=== PATIENT | male | born 1990 | race Caucasian/White ===

== ENCOUNTER 2017-05-05 01:25 | Inpatient (IN) | payer SELFPAY ==
--- NOTE | 2017-05-05 01:30 | EDPHY ---
H & P HPI/ROS: HPI CHIEF COMPLAINT: Nausea, vomiting, diarrhea, black tarry stool, coffee ground emesis HISTORY OF PRESENT ILLNESS: This patient is a 27-year-old male he denies any significant medical history does not take any daily medications, he presents emergency room with 48 hours of ongoing nausea vomiting. States this all started approximately 2 days ago with relentless vomiting. He tells me that he has vomited every 30 minutes pretty much continuously. Initially it was normal vomiting of secretions in food, however this continued to have vomiting with what he describes is coffee-ground emesis, also black tarry stool. Denies ever having bright streaks of blood or bright blood. Became concerned with the ongoing vomiting they decided come to the emergency room. Additionally complains of epigastric discomfort that radiates into his chest worse after vomiting. Denies fever. Denies abdominal pain. Specifically denies lower abdominal pain. Denies back pain. Denies chest pain other than the burning sensation. Never had anything like this before. No history of GI bleed or ulcer. Does not take any NSAIDs. Past Medical History: No medical history Past Surgical History: No surgical history Social History: Smokes tobacco and marijuana daily, occasional alcohol, last drink 5 days ago, states he lives in [place]. Family History: Noncontributory ROS REVIEW OF SYSTEMS: A comprehensive 10 point review of systems is otherwise negative aside from elements mentioned in the history of present illness. Exam Constitutional appears nontoxic triage nursing summary reviewed, vital signs reviewed, awake/alert. Initial vital signs noted to be tachycardic. Eyes normal conjunctivae and sclera, EOMI, PERRLA. HENT normal inspection, atraumatic, moist mucus membranes, no epistaxis, neck supple/ no meningismus, no raccoon eyes. Respiratory clear to auscultation bilaterally, normal breath sounds, no respiratory distress, no wheezing. Cardiovascular tachycardic , regular rhythm, no murmur, no edema, distal pulses normal. Gastrointestinal soft, non-tender, no rebound, no guarding, normal bowel sounds, no distension, no pulsatile mass. Genitourinary no CVA tenderness. Musculoskeletal no midline vertebral tenderness, full range of motion, no calf swelling, no tenderness of extremities, no meningismus, good pulses, neurovascularly intact. Skin pink, warm, & dry, no rash, skin atraumatic. Neurologic awake, alert and oriented x 3, AAOx3, moves all 4 extremities equally, motor intact, sensory intact, CN II-XII intact, normal cerebellar, normal vision, normal speech. Psychiatric normal mood/affect. Heme/Lymph/Immune no lymphadenopathy. Differential Diagnosis: Includes but is not limited to in a particular order, gastritis, bowel obstruction, Alma Delia-Ayers tear, Boerhaave syndrome, GI bleed, upper GI bleed, peptic ulcer disease Medical Decision Making: Plan for this patient IV establishment, type and screen, IV Protonix, check abdominal blood work, chest x-ray two view, EKG, troponin, KUB IV fluids and nausea medicine. 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 Re-evaluation: EKG interpretation by me on record in [employer] system. Impression time of EKG 1:45 a.m., sinus rhythm rate of 81 I do not appreciate any significant ST elevation or significant ST depression. QT interval noted to be 448. Otherwise unremarkable EKG. ED x-ray chest two view: Negative for acute cardiopulmonary disease. Specifically I do not appreciate any free air under the diaphragms or subcutaneous air. Lung kennedy clear. Image interpreted myself. ED x-ray KUB: Negative for acute abnormality. Normal bowel gas pattern. No signs of obstruction or free air. Image interpreted by myself Ultrasound of the right upper quadrant. The results of the study are normal gallbladder, very enlarged liver, otherwise unremarkable. I discussed the results of this study with the radiologist Dr. John [id number]: After further discussion with this patient does admit to drinking sometimes large amounts of alcohol. Denies cocaine use but drug screen is positive. Patient still feels nauseous and pain in his epigastric region his lipase is normal. Ultrasound has been reviewed. Blood work reviewed. Elevated liver enzymes and bilirubin. Most likely consistent with liver disease possibly from alcohol use. No ascites on exam. Patient is not jaundiced or icteric. Patient does not appear septic. Given 48 hours of ongoing nausea vomiting and complain of black tarry stools and coffee-ground emesis however his H&H are stable and hemoccult blood is negative will keep him in the hospital today for IV hydration nausea control. Further liver evaluation. I spoke with Dr. Grider who agrees to admit. Source: Patient - Medical/Surgical History Hx Asthma: No Hx Chronic Respiratory Disease: No Hx Diabetes: No Hx Cardiac Disease: No Hx Renal Disease: No Hx Cirrhosis: No Hx Alcoholism: No Hx HIV/AIDS: No Hx Splenectomy or Spleen Trauma: No Other PMH: none - Social History Smoking Status: Current every day smoker Constitutional: Initial Vital Signs Temperature (C) 36.7 C 05/05/17 01:29 Heart Rate 118 H 05/05/17 01:29 Respiratory Rate 20 05/05/17 01:29 Blood Pressure 133/95 H 05/05/17 01:29 O2 Sat (%) 100 05/05/17 01:29 O2 Delivery Mode Room Air Allergies/Adverse Reactions: No Known Allergies Allergy (Unverified 05/05/17 01:28) Home Medications: Medication Instructions Recorded Omeprazole Magnesium [Prilosec Otc] 20 mg PO DAILY #30 tablet. 05/06/17 Medical Decision Making - Data Points Laboratory Results: Laboratory Results 05/05/17 01:40 05/05/17 01:40 Medications Given: Discontinued Medications Chlordiazepoxide HCl (Librium) 50 mg PO ONCE ONE Stop: 05/05/17 06:35 Last Admin: 05/05/17 06:44 Dose: 50 mg Chlordiazepoxide HCl (Librium) 50 mg PO ONCE ONE Stop: 05/05/17 10:19 Last Admin: 05/05/17 11:18 Dose: 50 mg Sodium Chloride (Ns) 1,000 mls @ 0 mls/hr IV EDNOW ONE; Wide Open PRN Reason: Protocol Stop: 05/05/17 01:35 Last Admin: 05/05/17 01:40 Dose: 1,000 mls Pantoprazole Sodium 40 mg/ (Sodium Chloride) 100 mls @ 200 mls/hr IV EDNOW ONE Stop: 05/05/17 02:10 Last Admin: 05/05/17 01:52 Dose: 100 mls Sodium Chloride (Ns) 1,000 mls @ 0 mls/hr IV ONCE ONE PRN Reason: Wide Open Stop: 05/05/17 02:09 Last Admin: 05/05/17 02:35 Dose: 1,000 mls Potassium Chloride 20 meq/ (Sodium Chloride) 1,000 mls @ 125 mls/hr IV CONT JOSUE Stop: 11/01/17 05:29 Last Admin: 05/06/17 08:19 Dose: 1,000 mls Pantoprazole Sodium 40 mg/ (Sodium Chloride) 100 mls @ 200 mls/hr IV BID JOSUE Stop: 11/01/17 08:59 Last Admin: 05/06/17 09:03 Dose: 100 mls Nicotine (Nicoderm Cq) 21 mg TD DAILY PRN PRN Reason: nicotine craving Stop: 11/01/17 08:59 Last Admin: 05/05/17 11:55 Dose: 21 mg Ondansetron HCl (Zofran) 4 mg IVP EDNOW ONE Stop: 05/05/17 01:35 Last Admin: 05/05/17 01:41 Dose: 4 mg Promethazine HCl (Phenergan) 12.5 mg IVP ONCE ONE Stop: 05/05/17 03:05 Last Admin: 05/05/17 03:09 Dose: 12.5 mg Departure - Departure Disposition: [facility] Acute Clinical Impression: Elevated liver enzymes, Dehydration Nausea and vomiting Qualifiers: Vomiting type: unspecified Vomiting Intractability: intractable Qualified Code( s): R11.2 - Nausea with vomiting, unspecified Condition: Good
[2017-05-05] MEDS ORDERED: ONDANSETRON 4 MG/2 ML VIAL IVP ONE (01:34)
[2017-05-05] MEDS ORDERED: NS 1,000 ML IV ONE ×2 (01:34→02:08)
[2017-05-05] MEDS ORDERED: ONDANSETRON 4 MG/2 ML VIAL ONE (01:36)
[2017-05-05] MEDS ORDERED: PANTOPRAZOLE SODIUM 40 MG in NS 100 ML IV ONE (01:41)
--- NOTE | 2017-05-05 01:47 | CPEKG ---
Heart Rate: 81 RR Interval: 741 P-R Interval: 136 QRSD Interval: 92 QT Interval: 448 QTC Interval: 520 P [place]: 70 QRS [place]: 92 T Wave [place]: 57 EKG Severity - ABNORMAL ECG - EKG Impression: SINUS RHYTHM EKG Impression: BORDERLINE RIGHT AXIS DEVIATION EKG Impression: PROLONGED QT INTERVAL Electronically Signed By: Todd Martin 07-May-2017 14:29:35
[2017-05-05 01:53] LABS: % IMMATURE GRANULYOCYTES 0.2 % (0.0-1.1); ABSOLUTE IMMATURE GRANULOCYTES 0.02 10^3/uL (0.00-0.10); ADD DIFF? NO; ADD MORPH? NO; ADD SCAN? NO; ATYPICAL LYMPHOCYTE FLAG 0 (0-99); FRAGMENT RBC FLAG 0 (0-99); HEMATOCRIT 48.4 % (40.0-51.0); HEMOGLOBIN 17.9 g/dL (13.7-17.5); LEFT SHIFT FLG 0 (0-99); LIPEMIA HEMOLYSIS FLAG 90 (0-99); MEAN CELL HEMOGLOBIN 34.1 pg (27.9-34.1); MEAN CELL VOLUME 92.2 fL (81.5-99.8); MEAN PLATELET VOLUME 10.7 fL (8.7-11.7); PLATELET CLUMPS FLAG 0 (0-99); PLATELET COUNT 198 10^3/uL (150-400); RED BLOOD CELL COUNT 5.25 10^6/uL (4.40-6.38); RED CELL DISTRIBUTION WIDTH 12.3 % (11.5-15.2)
[2017-05-05 02:04] LABS: ALANINE AMINOTRANSFERASE 155 IU/L (21-72); ALBUMIN 5.9 g/dL (3.5-5.0); ALKALINE PHOSPHATASE 125 IU/L (38-126); ANION GAP 36 mEq/L (8-16); ASPARTATE AMINOTRANSFERASE 213 IU/L (17-59); BILIRUBIN,TOTAL 2.3 mg/dL (0.1-1.4); BILIRUBIN-CONJUGATED 0.9 mg/dL (0.0-0.5); BILIRUBIN-UNCONJUGATED 1.4 mg/dL (0.0-1.1); CALCIUM 11.1 mg/dL (8.5-10.4); CARBON DIOXIDE 19 mEq/l (22-31); CHLORIDE 86 mEq/L (97-110); CREATININE 1.3 mg/dL (0.7-1.3); ETHANOL SERUM < 10 mg/dL (0-10); GLOMERULAR FILTRATION RATE > 60; GLUCOSE 179 mg/dL (70-100); INR 0.91 (0.83-1.16); POTASSIUM 3.4 mEq/L (3.5-5.2); PROTIME(PATIENT) 12.1 SEC (12.0-15.0); SODIUM 141 mEq/L (134-144); TOTAL PROTEIN 10.2 g/dL (6.3-8.2)
[2017-05-05 02:05] LABS: APTT 25.8 SEC (23.0-38.0)
[2017-05-05 02:40] LABS: COLOR AMBER; LEUKOCYTE ESTERASE,URINE 1+ (NEGATIVE); NITRITE,URINE NEGATIVE (NEGATIVE)
[2017-05-05 03:03] LABS: BACTERIA 1+ /hpf (NONE SEEN); MUCUS 1+ /lpf (NONE-1+); WBC,URINE 25-50 /hpf (0-3)
[2017-05-05] MEDS ORDERED: PROMETHAZINE HCL 25 MG/ML INJ IVP ONE (03:04)
[2017-05-05 03:05] LABS: HYALINE CASTS >182 /lpf (0-1)
[2017-05-05] MEDS: POTASSIUM Cl (KCl) 20 MEQ in 1/2 NS 1,000 ML IV SCH (05:48)
[2017-05-05 06:12] LABS: SALICYLATE < 1.0 mg/dL (2.0-20.0)
--- NOTE | 2017-05-05 06:20 | PDGENHP ---
History and Physical - Chief Complaint nausea and vomiting - History of Present Illness this is a 27-year-old male with history of alcohol abuse who presents to the emergency department with 2 days of vomiting. Since the onset of his vomiting 2 days ago he has not been able to tolerate fluids or solids. He denies any abdominal pain. Denies any sick contacts. He does report some burning and pain in the middle of his chest. He history day he had what he described as some coffee-ground and bloody emesis as well as some black stools. He reports being a heavy drinker. His last drink was prior to the onset of his vomiting where he drank 350 mL of vodka which she does on a fairly regular basis. denies any history of alcohol withdrawal. He denies any aspirin or Tylenol use. History Information - Allergies/Home Medication List Allergies/Adverse Reactions: No Known Allergies Allergy (Unverified 05/05/17 01:28) Home Medications: NK [No Known Home Meds] 01/29/16 [Last Taken Unknown] I have personally reviewed and updated: family history, medical history, social history, surgical history - Surgical History Additional surgical history: Hand surgery - Family History Additional family history: rheumatoid arthritis in his mother - Social History Smoking Status: Current every day smoker Alcohol Use: Heavy Drug Use: Cocaine Review of Systems ROS: 10pt was reviewed & negative except for what was stated in HPI & below Physical Exam Temp Pulse Resp BP Pulse Ox 36.8 C 78 18 128/84 H 97 05/05/17 04:41 05/05/17 04:41 05/05/17 04:41 05/05/17 04:41 05/05/17 04:41 Constitutional: no apparent distress, appears nourished, not in pain Eyes: PERRL, anicteric sclera, EOMI Ears, Nose, Mouth, Throat: moist mucous membranes, hearing normal, ears appear normal, no oral mucosal ulcers Cardiovascular: regular rate and rhythym, No JVD, No tachycardia, No bradycardia Respiratory: no respiratory distress, no rales or rhonchi, clear to auscultation Gastrointestinal: normoactive bowel sounds, soft, non-tender abdomen, no palpable masses, No hepatosplenomegally, No guarding, No rebound Genitourinary: no bladder fullness, no bladder tenderness Skin: warm, normal color, no rashes or abrasions, no fluctuance, no induration, No mottled Neurologic: AAOx3, CN II-XII Intact, No facial droop Psychiatric: interacting appropriately, not anxious, not encephalopathic, thought process linear Lab Data & Imaging Review 05/05/17 01:40 05/05/17 01:40 WBC 10.02 10^3/uL (3.80-9.50) H 05/05/17 01:40 RBC 5.25 10^6/uL (4.40-6.38) 05/05/17 01:40 Hgb 17.9 g/dL (13.7-17.5) H 05/05/17 01:40 Hct 48.4 % (40.0-51.0) 05/05/17 01:40 MCV 92.2 fL (81.5-99.8) 05/05/17 01:40 MCH 34.1 pg (27.9-34.1) 05/05/17 01:40 MCHC 37.0 g/dL (32.4-36.7) H 05/05/17 01:40 RDW 12.3 % (11.5-15.2) 05/05/17 01:40 Plt Count 198 10^3/uL (150-400) 05/05/17 01:40 MPV 10.7 fL (8.7-11.7) 05/05/17 01:40 Neut % (Auto) 81.3 % (39.3-74.2) H 05/05/17 01:40 Lymph % (Auto) 5.6 % (15.0-45.0) L 05/05/17 01:40 Gordon % (Auto) 12.8 % (4.5-13.0) 05/05/17 01:40 Eos % (Auto) 0.0 % (0.6-7.6) L 05/05/17 01:40 Baso % (Auto) 0.1 % (0.3-1.7) L 05/05/17 01:40 Nucleat RBC Rel Count 0.0 % (0.0-0.2) 05/05/17 01:40 Absolute Neuts (auto) 8.15 10^3/uL (1.70-6.50) H 05/05/17 01:40 Absolute Lymphs (auto) 0.56 10^3/uL (1.00-3.00) L 05/05/17 01:40 Absolute Monos (auto) 1.28 10^3/uL (0.30-0.80) H 05/05/17 01:40 Absolute Eos (auto) 0.00 10^3/uL (0.03-0.40) L 05/05/17 01:40 Absolute Basos (auto) 0.01 10^3/uL (0.02-0.10) L 05/05/17 01:40 Absolute Nucleated RBC 0.00 10^3/uL (0-0.01) 05/05/17 01:40 Immature Gran % 0.2 % (0.0-1.1) 05/05/17 01:40 Immature Gran # 0.02 10^3/uL (0.00-0.10) 05/05/17 01:40 PT 12.1 SEC (12.0-15.0) 05/05/17 01:40 INR 0.91 (0.83-1.16) 05/05/17 01:40 APTT 25.8 SEC (23.0-38.0) 05/05/17 01:40 Sodium 141 mEq/L (134-144) 05/05/17 01:40 Potassium 3.4 mEq/L (3.5-5.2) L 05/05/17 01:40 Chloride 86 mEq/L (97-110) L 05/05/17 01:40 Carbon Dioxide 19 mEq/l (22-31) L 05/05/17 01:40 Anion Gap 36 mEq/L (8-16) H 05/05/17 01:40 BUN 18 mg/dL (7-23) 05/05/17 01:40 Creatinine 1.3 mg/dL (0.7-1.3) 05/05/17 01:40 Estimated GFR > 60 05/05/17 01:40 Glucose 179 mg/dL (70-100) H 05/05/17 01:40 Calcium 11.1 mg/dL (8.5-10.4) H 05/05/17 01:40 Phosphorus 3.5 mg/dL (2.5-4.5) 05/05/17 01:40 Total Bilirubin 2.3 mg/dL (0.1-1.4) H 05/05/17 01:40 Conjugated Bilirubin 0.9 mg/dL (0.0-0.5) H 05/05/17 01:40 Unconjugated Bilirubin 1.4 mg/dL (0.0-1.1) H 05/05/17 01:40 AST 213 IU/L (17-59) H 05/05/17 01:40 ALT 155 IU/L (21-72) H 05/05/17 01:40 Alkaline Phosphatase 125 IU/L (38-126) 05/05/17 01:40 Total Protein 10.2 g/dL (6.3-8.2) H 05/05/17 01:40 Albumin 5.9 g/dL (3.5-5.0) H 05/05/17 01:40 Lipase 127.0 IU/L (23-300) 05/05/17 01:40 Urine Color [place] 05/05/17 02:15 Urine Appearance MODERATELY TURBID 05/05/17 02:15 Urine pH 6.0 (5.0-7.5) 05/05/17 02:15 Ur Specific [place] 1.026 (1.002-1.030) 05/05/17 02:15 Urine Protein 3+ (NEGATIVE) H 05/05/17 02:15 Urine Ketones 2+ (NEGATIVE) H 05/05/17 02:15 Urine Blood NEGATIVE (NEGATIVE) 05/05/17 02:15 Urine Nitrate NEGATIVE (NEGATIVE) 05/05/17 02:15 Urine Bilirubin POSITIVE (NEGATIVE) H 05/05/17 02:15 Urine Urobilinogen 4.0 EU (0.2-1.0) H 05/05/17 02:15 Ur Leukocyte Esterase 1+ (NEGATIVE) H 05/05/17 02:15 Urine RBC 3-5 /hpf (0-3) H 05/05/17 02:15 Urine WBC 25-50 /hpf (0-3) H 05/05/17 02:15 Ur Epithelial Cells TRACE /lpf (NONE-1+) 05/05/17 02:15 Urine Bacteria 1+ /hpf (NONE SEEN) H 05/05/17 02:15 Hyaline Casts >182 /lpf (0-1) H 05/05/17 02:15 Urine Mucus 1+ /lpf (NONE-1+) 05/05/17 02:15 Urine Glucose 1+ (NEGATIVE) H 05/05/17 02:15 Stool Occult Bld Scrn NEGATIVE (NEGATIVE) 05/05/17 02:15 Salicylates < 1.0 mg/dL (2.0-20.0) L 05/05/17 05:43 Urine Opiates Screen NEGATIVE (NEGATIVE) 05/05/17 02:15 Acetaminophen < 10 mcg/mL (10.0-30.0) L 05/05/17 05:43 Urine Barbiturates NEGATIVE (NEGATIVE) 05/05/17 02:15 Ur Phencyclidine Scrn NEGATIVE (NEGATIVE) 05/05/17 02:15 Ur Amphetamine Screen NEGATIVE (NEGATIVE) 05/05/17 02:15 U Benzodiazepines Scrn NEGATIVE (NEGATIVE) 05/05/17 02:15 Urine Cocaine Screen NON-NEGATIVE (NEGATIVE) H 05/05/17 02:15 U Marijuana (THC) Screen NON-NEGATIVE (NEGATIVE) H 05/05/17 02:15 Ethyl Alcohol < 10 mg/dL (0-10) 05/05/17 01:40 Patient ABO/Rh O POSITIVE 05/05/17 01:40 Antibody Screen NEGATIVE 05/05/17 01:40 Visualized and Interpreted Chest x-ray results: Yes Chest X-Ray results: no infiltrate, normal, normal heart size Visualized and Interpreted EKG results: Yes EKG Interpretation: Positive for: normal sinsus rhythm ( 81 beats per minute), other ( QTC 448 with a QTCB 520). Negative for: ST elevation, ST depression Assessment & Plan Assessment: This is a 27-year-old male with history of alcohol abuse presenting with: # Intractable nausea vomiting and reported melena suspect gastritis # transaminitis and hyperbilirubinemia most likely due to alcoholic hepatitis # borderline QT prolongation on EKG #hypercalcemia likely due to hypovolemia # mild hypokalemia # tobacco abuse # polycythemia likely due to hypovolemia and dehydration # anion gap metabolic acidosis # alcohol abuse plan: - Admit to the medical surgical unit - IV hydration - continue to monitor electrolytes - IV Protonix - CIWA protocol - Nicoderm patch - considered GI consultation for endoscopy if his symptoms are not improving or if he has any signs of bleeding
[2017-05-05] MEDS ORDERED: PROMETHAZINE HCL 25 MG/ML INJ IVP PRN (06:33)
[2017-05-05] MEDS ORDERED: chlordiazePOXIDE 25 MG CAP PO PRN (06:34)
[2017-05-05] MEDS ORDERED: chlordiazePOXIDE 25 MG CAP PO ONE ×2 (06:34→10:18)
[2017-05-05] MEDS ORDERED: NICOTINE 21 MG/24 HR PATCH TD PRN (06:35)
[2017-05-05] MEDS: PANTOPRAZOLE SODIUM 40 MG in NS 100 ML IV SCH ×2 (08:10→20:17)
--- NOTE | 2017-05-05 10:19 | HOSPPROG ---
Hospitalist Progress Note Assessment/Plan: alert borderline tachycardic give librium X 1 now regular diet home if tolerates po Objective: Vital Signs Temp Pulse Resp BP Pulse Ox 36.7 C 79 18 133/74 H 94 05/05/17 07:15 05/05/17 07:15 05/05/17 07:15 05/05/17 07:15 05/05/17 07:15 05/04/17 05/05/17 05/06/17 05:59 05:59 05:59 Intake Total 1999 Balance 1999 PT 12.1 SEC (12.0-15.0) 05/05/17 01:40 INR 0.91 (0.83-1.16) 05/05/17 01:40 ICD10 Worksheet Patient Problems: Problems Problem Status Onset Dehydration Acute Elevated liver enzymes Acute Nausea and vomiting Acute
[2017-05-05 11:40] LABS: HEMATOCRIT 38.2 % (40.0-51.0); HEMOGLOBIN 13.7 g/dL (13.7-17.5)
[2017-05-06] MEDS: POTASSIUM Cl (KCl) 20 MEQ in 1/2 NS 1,000 ML IV SCH ×2 (00:07→08:19)
[2017-05-06 05:03] LABS: % IMMATURE GRANULYOCYTES 0.3 % (0.0-1.1); ABSOLUTE IMMATURE GRANULOCYTES 0.03 10^3/uL (0.00-0.10); ADD DIFF? NO; ADD MORPH? NO; ADD SCAN? NO; ATYPICAL LYMPHOCYTE FLAG 0 (0-99); FRAGMENT RBC FLAG 0 (0-99); HEMOGLOBIN 13.9 g/dL (13.7-17.5); LEFT SHIFT FLG 0 (0-99); LIPEMIA HEMOLYSIS FLAG 90 (0-99); MEAN CELL HEMOGLOBIN 33.7 pg (27.9-34.1); MEAN CELL HEMOGLOBIN CONCENTR. 35.6 g/dL (32.4-36.7); MEAN CELL VOLUME 94.7 fL (81.5-99.8); MEAN PLATELET VOLUME 10.7 fL (8.7-11.7); PLATELET CLUMPS FLAG 0 (0-99); PLATELET COUNT 111 10^3/uL (150-400); RED BLOOD CELL COUNT 4.12 10^6/uL (4.40-6.38); RED CELL DISTRIBUTION WIDTH 12.1 % (11.5-15.2)
[2017-05-06 05:17] LABS: ALANINE AMINOTRANSFERASE 90 IU/L (21-72); ALBUMIN 3.6 g/dL (3.5-5.0); ALKALINE PHOSPHATASE 56 IU/L (38-126); ANION GAP 13 mEq/L (8-16); ASPARTATE AMINOTRANSFERASE 111 IU/L (17-59); BILIRUBIN,TOTAL 1.3 mg/dL (0.1-1.4); CALCIUM 8.9 mg/dL (8.5-10.4); CARBON DIOXIDE 27 mEq/l (22-31); CHLORIDE 98 mEq/L (97-110); CREATININE 0.9 mg/dL (0.7-1.3); GLOMERULAR FILTRATION RATE > 60; GLUCOSE 80 mg/dL (70-100); POTASSIUM 3.5 mEq/L (3.5-5.2); SODIUM 138 mEq/L (134-144); TOTAL PROTEIN 6.3 g/dL (6.3-8.2)
[2017-05-06 08:20] VITALS: BP 123/85; PULSE 62; RESP 14; TEMP 98.2; O2SAT 97
[2017-05-06] MEDS: PANTOPRAZOLE SODIUM 40 MG in NS 100 ML IV SCH (09:03)
--- NOTE | 2017-05-06 09:12 | PDDCSUM ---
Discharge Summary Discharge Summary: DISCHARGE DIAGNOSES: -ACUTE ALCOHOLIC HEPATITIS -INTRACTABLE VOMITING -DEHYDRATION -ALCOHOLISM -COCAINE AND MARIJUANA ABUSE COMPLICATIONS NONE HOSPITAL SUMMARY: The patient came in with intractable vomiting due to alcoholic hepatitis, with only mild bilirubin elevation. He had symptoms also suggestive of esophagitis and gastritis. He was fairly dehydrated. He was treated with hydration, PPI, and thiamine. He responded very well with resolution of symptoms and improvement in lab chemistry numbers. He received extesive counseling regarding the dangers of his substance use, and the benefits of engaging in counseling and therapy, which he is quite interested in. He plans on stopping all substances at this time. He is stable for DC home MED CHANGES: 30 days or prilosec F/U with primary care and he plans to engage in substance use counseling
[2017-05-08] MEDS ORDERED: THIAMINE HCL 100 MG TAB PO SCH (09:00)
== END 2017-05-06 10:32 | disposition home or self-care (01) | DRG 434 ==
LOC: F3E 04:37
PROVIDERS: ADMIT Family Medicine; ATTEND Family Medicine
DX: K70.10 Alcoholic hepatitis without ascites (principal); G43.A1 Cyclical vomiting, in migraine, intractable; E86.0 Dehydration; F10.20 Alcohol dependence, uncomplicated; F14.10 Cocaine abuse, uncomplicated; F12.10 Cannabis abuse, uncomplicated; Z72.0 Tobacco use
CPT/HCPCS: 80305; G0472; G0480; J2405; J2550

== ENCOUNTER 2017-05-22 19:50 | Emergency (ER) | payer MEDICAID ==
--- NOTE | 2017-05-22 20:21 | CPEKG ---
Heart Rate: 72 RR Interval: 833 P-R Interval: 156 QRSD Interval: 90 QT Interval: 408 QTC Interval: 447 P [place]: 62 QRS [place]: 78 T Wave [place]: 44 EKG Severity - NORMAL ECG - EKG Impression: SINUS RHYTHM Electronically Signed By: Kati Clay 22-May-2017 20:53:35
[2017-05-22 20:22] VITALS: TEMP 98.4
[2017-05-22] MEDS ORDERED: NS 1,000 ML IV ONE ×2 (20:39→21:12)
[2017-05-22] MEDS ORDERED: LORazepam 2 MG/ML INJ IVP ONE (20:39)
[2017-05-22 20:54] LABS: % IMMATURE GRANULYOCYTES 0.3 % (0.0-1.1); ABSOLUTE IMMATURE GRANULOCYTES 0.02 10^3/uL (0.00-0.10); ADD DIFF? NO; ADD MORPH? NO; ADD SCAN? NO; ATYPICAL LYMPHOCYTE FLAG 20 (0-99); FRAGMENT RBC FLAG 0 (0-99); HEMATOCRIT 43.2 % (40.0-51.0); HEMOGLOBIN 15.2 g/dL (13.7-17.5); LEFT SHIFT FLG 0 (0-99); LIPEMIA HEMOLYSIS FLAG 90 (0-99); MEAN CELL HEMOGLOBIN 34.3 pg (27.9-34.1); MEAN CELL HEMOGLOBIN CONCENTR. 35.2 g/dL (32.4-36.7); MEAN CELL VOLUME 97.5 fL (81.5-99.8); MEAN PLATELET VOLUME 10.2 fL (8.7-11.7); PLATELET CLUMPS FLAG 0 (0-99); PLATELET COUNT 261 10^3/uL (150-400); RED BLOOD CELL COUNT 4.43 10^6/uL (4.40-6.38); RED CELL DISTRIBUTION WIDTH 13.7 % (11.5-15.2)
[2017-05-22 21:06] LABS: ANION GAP 23 mEq/L (8-16); CALCIUM 10.2 mg/dL (8.5-10.4); CARBON DIOXIDE 20 mEq/l (22-31); CHLORIDE 98 mEq/L (97-110); CREATININE 0.9 mg/dL (0.7-1.3); GLOMERULAR FILTRATION RATE > 60; GLUCOSE 126 mg/dL (70-100); POTASSIUM 3.2 mEq/L (3.5-5.2); SODIUM 141 mEq/L (134-144)
--- NOTE | 2017-05-22 21:11 | EDPHY ---
H & P Time Seen by Provider: 05/22/17 21:11 HPI/ROS: Chief complaint. First-time seizure HPI. 27-year-old male here by EMS after having a seizure at work. He was postictal for a. Of time and now gradually oriented. No injury and did not bite his tongue. He has a history of alcoholism and last drink was 2 days ago. He was quite tremulous on arrival. Patient was admitted May 05 for alcoholic hepatitis and has a history of alcoholism and cocaine use. Patient is trying to cut down on his drinking. He had febrile seizures as a child. Denies chest pain, shortness of breath, abdominal pain. ROS Constitutional. no fever/chills, no weakness Eyes. no problems with vision ENT. no sore throat, no nasal drainage Cardiovascular. no chest pain Respiratory. no shortness of breath, no cough Abdominal. no abdominal pain, no nausea/vomiting, no diarrhea . no problems urinating MS. no calf pain/swelling, no neck/back pain, no joint pain Skin. no rash Lymph. no swollen glands Neuro. Seizure, tremulous Past Medical/Surgical History: Alcoholic hepatitis, alcoholism, cocaine use Social History: Single, daily smoker, no alcohol for 2 days Smoking Status: Current every day smoker Physical Exam: General Appearance: Alert well-developed male somewhat tremulous vital signs are stable Eyes: Pupils equal and round no pallor or injection. ENT, Mouth: Mucous membranes are moist. Respiratory: There are no retractions, lungs are clear to auscultation. Cardiovascular: Regular rate and rhythm. Gastrointestinal: Abdomen is soft and nontender, no masses, bowel sounds normal. Neurological: Awake and alert, sensory and motor exams grossly normal. Skin: Warm and dry, no rashes. Musculoskeletal: Neck is supple nontender. Extremities symmetrical, full range of motion. Psychiatric: Patient is oriented X 3, there is no agitation. Constitutional: Initial Vital Signs Temperature (C) 36.9 C 05/22/17 20:14 Heart Rate 76 05/22/17 20:14 Respiratory Rate 16 05/22/17 20:14 Blood Pressure 141/99 H 05/22/17 20:14 O2 Sat (%) 96 05/22/17 20:14 O2 Delivery Mode Room Air Allergies/Adverse Reactions: No Known Allergies Allergy (Verified 05/22/17 20:10) Home Medications: Medication Instructions Recorded Omeprazole Magnesium [Prilosec Otc] 20 mg PO DAILY #30 tablet. 05/06/17 Medical Decision Making - Diagnostics Imaging Results: Imaging Impressions Head CT 05/22/17 20:40 Impression: Premature cerebral atrophy.? EtOH. Results called and discussed with CORETTA MEMBRENO, at 05/22/2017 22:01 General information for patients regarding this examination can be found at [email or web address]. If you have questions or comments about this report, please contact me at [phone] (hospital) or [phone] (cell). Head CT without contrast reviewed by me and discussed with Dr. Trejo is negative for intracranial pathology. Severe atrophy is present however. Procedures: IV normal saline, monitor, seizure precautions IV Ativan. Oral Librium ED Course/Re-evaluation: Re-evaluation at 10:30 p.m.. Patient is stable. Normal neurologic exam. The patient and I discussed imaging and lab results. We discussed treatment plan including no driving or other dangerous activity until seen by Neurology. We discussed criteria for return and importance of follow-up and further evaluation. He expresses understanding and agreement. His mother is here to take him home Differential Diagnosis: This is likely alcohol withdrawal seizure. His last drink was 2 days ago. He was tremulous. There is no evidence for intracranial bleeding or brain tumor - Data Points Laboratory Results: Laboratory Results 05/22/17 19:55 05/22/17 19:55 05/22/17 05/22/17 05/22/17 19:55 19:55 19:55 WBC 6.49 10^3/uL 10^3/uL (3.80-9.50) RBC 4.43 10^6/uL 10^6/uL (4.40-6.38) Hgb 15.2 g/dL g/dL (13.7-17.5) Hct 43.2 % % (40.0-51.0) MCV 97.5 fL fL (81.5-99.8) MCH 34.3 pg H pg (27.9-34.1) MCHC 35.2 g/dL g/dL (32.4-36.7) RDW 13.7 % % (11.5-15.2) Plt Count 261 10^3/uL 10^3/uL (150-400) MPV 10.2 fL fL (8.7-11.7) Neut % (Auto) 68.4 % % (39.3-74.2) Lymph % (Auto) 20.3 % % (15.0-45.0) [place] % (Auto) 8.8 % % (4.5-13.0) Eos % (Auto) 1.4 % % (0.6-7.6) Baso % (Auto) 0.8 % % (0.3-1.7) Nucleat RBC Rel Count 0.0 % % (0.0-0.2) Absolute Neuts (auto) 4.44 10^3/uL 10^3/uL (1.70-6.50) Absolute Lymphs (auto) 1.32 10^3/uL 10^3/uL (1.00-3.00) Absolute Monos (auto) 0.57 10^3/uL 10^3/uL (0.30-0.80) Absolute Eos (auto) 0.09 10^3/uL 10^3/uL (0.03-0.40) Absolute Basos (auto) 0.05 10^3/uL 10^3/uL (0.02-0.10) Absolute Nucleated RBC 0.00 10^3/uL 10^3/uL (0-0.01) Immature Gran % 0.3 % % (0.0-1.1) Immature Gran # 0.02 10^3/uL 10^3/uL (0.00-0.10) Sodium 142 mEq/L mEq/L 141 mEq/L mEq/L (134-144) (134-144) Potassium 3.2 mEq/L L mEq/L 3.2 mEq/L L mEq/L (3.5-5.2) (3.5-5.2) Chloride 98 mEq/L mEq/L 98 mEq/L mEq/L (97-110) (97-110) Carbon Dioxide 21 mEq/l L mEq/l 20 mEq/l L mEq/l (22-31) (22-31) Anion Gap 23 mEq/L H mEq/L 23 mEq/L H mEq/L (8-16) (8-16) BUN 4 mg/dL L mg/dL 4 mg/dL L mg/dL (7-23) (7-23) Creatinine 0.8 mg/dL mg/dL 0.9 mg/dL mg/dL (0.7-1.3) (0.7-1.3) Estimated GFR > 60 > 60 Glucose 125 mg/dL H mg/dL 126 mg/dL H mg/dL (70-100) (70-100) Calcium 10.2 mg/dL mg/dL 10.2 mg/dL mg/dL (8.5-10.4) (8.5-10.4) Medications Given: Discontinued Medications Chlordiazepoxide (Librium 25 Mg Prepack#6) 1 btl TAKEHOME EDNOW ONE Stop: 05/22/17 21:26 Last Admin: 05/22/17 21:31 Dose: 1 btl Chlordiazepoxide HCl (Librium) 25 mg PO EDNOW ONE Stop: 05/22/17 21:26 Last Admin: 05/22/17 21:30 Dose: 25 mg Sodium Chloride (Ns) 1,000 mls @ 0 mls/hr IV ONCE ONE PRN Reason: Wide Open Stop: 05/22/17 20:40 Last Admin: 05/22/17 20:49 Dose: 1,000 mls Sodium Chloride (Ns) 1,000 mls @ 0 mls/hr IV EDNOW ONE; Wide Open PRN Reason: Protocol Stop: 05/22/17 21:13 Last Admin: 05/22/17 21:30 Dose: 1,000 mls Lorazepam (Ativan Injection) 1 mg IVP EDNOW ONE Stop: 05/22/17 20:40 Last Admin: 05/22/17 20:49 Dose: 1 mg Ondansetron HCl (Zofran) 4 mg IVP EDNOW ONE Stop: 05/22/17 21:34 Last Admin: 05/22/17 21:45 Dose: 4 mg Departure - Departure Disposition: Home, Routine, Self-Care Clinical Impression: Seizure Condition: Good Instructions: Chlordiazepoxide (By mouth), New-Onset Seizure in Adults (ED) Additional Instructions: Continue to refrain from alcohol consumption. Librium 1 pill every 6 hours until gone. No driving or other dangerous activity until evaluated by Neurology. Call neurologist tomorrow morning for follow-up appointment. Return for another seizure Referrals: NONE *PRIMARY CARE P,. [Primary Care Provider] - As per Instructions Tavo Alexander MD [Medical Doctor] - As per Instructions Stand Alone Forms: Work Excuse
[2017-05-22 21:24] LABS: ANION GAP 23 mEq/L (8-16); CALCIUM 10.2 mg/dL (8.5-10.4); CARBON DIOXIDE 21 mEq/l (22-31); CHLORIDE 98 mEq/L (97-110); CREATININE 0.8 mg/dL (0.7-1.3); GLOMERULAR FILTRATION RATE > 60; GLUCOSE 125 mg/dL (70-100); POTASSIUM 3.2 mEq/L (3.5-5.2); SODIUM 142 mEq/L (134-144)
[2017-05-22] MEDS ORDERED: chlordiazePOXIDE 25 MG CAP PO ONE (21:25)
[2017-05-22] MEDS ORDERED: CHLORDIAZEPOXIDE 25MG PREPK#6 BTL TAKEHOME ONE (21:25)
[2017-05-22] MEDS ORDERED: ONDANSETRON 4 MG/2 ML VIAL IVP ONE (21:33)
[2017-05-22 22:45] VITALS: BP 123/92; PULSE 74; RESP 15; O2SAT 96
== END 2017-05-22 22:44 | disposition home or self-care (01) ==
LOC: EDUNIT#
DX: R56.9 Unspecified convulsions (principal); F17.200 Nicotine dependence, unspecified, uncomplicated; E86.9 Volume depletion, unspecified
CPT/HCPCS: 96374; J2060; J2405

== ENCOUNTER 2017-08-16 18:47 | Emergency (ER) | payer MEDICAID ==
[2017-08-16] MEDS ORDERED: ONDANSETRON 4 MG/2 ML VIAL IVP ONE (19:00)
[2017-08-16] MEDS ORDERED: NS 500 ML IV ONE (19:23)
[2017-08-16] MEDS ORDERED: LORazepam 2 MG/ML INJ IVP ONE (19:25)
[2017-08-16] MEDS ORDERED: SKIN ADHESIVE (DERMABOND) 1 EACH TP ONE (20:24)
--- NOTE | 2017-08-16 20:27 | EDPHY ---
H & P Time Seen by Provider: 08/16/17 18:59 HPI/ROS: HPI Seizure. 27-year-old male. History of alcohol abuse. Patient was at the [facility]. He had a tonic-clonic seizure lasting 2-3 minutes according to staff at the [facility]. He has had alcohol withdrawal seizures in the past. He fell forward and struck his right forehead. Early does not have any complaints. He says that his last drink was at least several days ago. Last withdrawal seizure was about a month ago. He drinks vodka. About a bottle a day. He denies headache at this time. No loss of sensation or weakness in his extremities. No neck pain. No changes in vision. ROS: Constitutional: No fever, no chills. No weakness. Eyes: No discharge. No changes in vision. Respiratory: No cough. No shortness of breath. Cardiac: No chest pain, no palpitations. Gastrointestinal: No abdominal pain, no vomiting, no diarrhea. Musculoskeletal: No back pain. No neck pain. No myalgias or arthralgias. Skin: No rashes. Small laceration to right forehead. Neurological: No headache. No focal weakness or altered sensation. Past medical history: Alcohol abuse. Social history: Alcohol abuse. Nonsmoker. Here by himself. Physical Exam: General Appearance: Alert, no distress. This patient is responding to questions appropriately and in full sentences. This patient appears well- hydrated and well-nourished. Head: Normocephalic atraumatic except for a right-sided mid forehead hematoma with a 1 cm non gaping laceration. Face: Facial bones are stable on palpation. Eyes: Pupils equal and round and reactive to light, no pallor or injection. No lid erythema or edema. ENT, Mouth: Mucous membranes moist. Dentition is intact. No malocclusion of the jaw. No tongue lacerations or abrasions. Pharynx is clear. The bilateral nasal canals are clear. No septal hematoma. Respiratory: There are no retractions, lungs are clear to auscultation with good air movement bilaterally. Chest wall is stable to AP and lateral palpation. Cardiovascular: Regular rate and rhythm. No murmur. Gastrointestinal: Abdomen is soft and nontender, no masses, bowel sounds normal. Neurological: Motor sensory function is intact. Cranial nerves are normal. Cerebellar function intact. Resting tremor. Skin: Warm and dry, no rashes. No lacerations, abrasions or contusions. Musculoskeletal: Neck is supple and nontender. The trachea is midline. No midline cervical, thoracic, lumbar or sacral tenderness on palpation. No flank tenderness on palpation. Extremities are symmetrical, full range of motion. All joints in the bilateral upper and bilateral lower extremities range without pain or impingement. No tenderness on palpation of the long bones in the bilateral upper and bilateral lower extremities. Psychiatric: No agitation. No depression. Database: EKG: Imaging: CT scan of head without contrast: Negative except for right mid forehead hematoma. Results were discussed with staff radiologist Dr. Deandre Glass. Procedures: Procedure: Laceration repair. Verbal consent was obtained from the patient. The 1 cm laceration on the right mid forehead was anesthetized in the usual fashion. The wound was irrigated, draped and explored to its base with a gloved finger. There were no deep structures involved. No foreign body was identified. The wound was repaired with skin. The wound repair was tolerated well and there were no complications. The procedure was performed by myself. Emergency department course: IV placed. He was given a L of IV normal saline. He was given 2 mg of IV Ativan. Vital signs have been reviewed and are normal. 8:25 p.m., patient re-evaluated. Watching TV. Appears comfortable. Reports feeling better after Ativan. Results of CT scan and blood work discussed with him. He feels comfortable being discharged back to the [facility]. He will be sent with Librium. Follow-up and return to emergency department precautions discussed with him. All of his questions were answered. He was discharged in good condition. Differential Diagnosis: The differential diagnosis on this patient includes but is not limited to alcohol abuse, alcohol withdrawal seizure. Acidosis likely secondary to seizure and lactate production. Traumatic brain injury, other significant traumatic injury unlikely. This represents a partial list of diagnoses considered. These considerations are based on history, physical exam, past history, reassessment and diagnostic testing. Smoking Status: Current every day smoker Constitutional: Initial Vital Signs Temperature (C) 36.6 C 08/16/17 18:56 Heart Rate 73 08/16/17 18:56 Respiratory Rate 16 08/16/17 18:56 Blood Pressure 141/84 H 08/16/17 18:56 O2 Sat (%) 94 08/16/17 18:56 O2 Delivery Mode Room Air O2 (L/minute) 2 Allergies/Adverse Reactions: No Known Allergies Allergy (Verified 05/22/17 20:10) Home Medications: Medication Instructions Recorded Omeprazole Magnesium [Prilosec Otc] 20 mg PO DAILY #30 tablet. 05/06/17 Medical Decision Making - Diagnostics Imaging Results: Imaging Impressions Head CT 08/16/17 19:25 Impression: Small right frontal scalp hematoma. No acute fracture or evidence of acute intracranial injury. Findings discussed with Emergency Department physician, Shalini Rodas MD at 08/16/2017 19:53. - Data Points Laboratory Results: Laboratory Results 08/16/17 18:55 08/16/17 18:55 Sodium 141 mEq/L mEq/L (134-144) Potassium 3.3 mEq/L L mEq/L (3.5-5.2) Chloride 91 mEq/L L mEq/L (97-110) Carbon Dioxide 12 mEq/l L mEq/l (22-31) Anion Gap 38 mEq/L H mEq/L (8-16) BUN 6 mg/dL L mg/dL (7-23) Creatinine 0.9 mg/dL mg/dL (0.7-1.3) Estimated GFR > 60 Glucose 145 mg/dL H mg/dL (70-100) Calcium 10.1 mg/dL mg/dL (8.5-10.4) Ethyl Alcohol < 10 mg/dL mg/dL (0-10) Medications Given: Discontinued Medications Sodium Chloride (Ns) 500 mls @ 0 mls/hr IV ONCE ONE; Wide Open PRN Reason: Protocol Stop: 08/16/17 19:24 Last Admin: 08/16/17 19:46 Dose: 500 mls Lorazepam (Ativan Injection) 2 mg IVP EDNOW ONE Stop: 08/16/17 19:26 Last Admin: 08/16/17 19:43 Dose: 2 mg Ondansetron HCl (Zofran) 4 mg IVP EDNOW ONE Stop: 08/16/17 19:01 Last Admin: 08/16/17 19:07 Dose: 4 mg Departure - Departure Disposition: Home, Routine, Self-Care Clinical Impression: Alcohol withdrawal seizure, Forehead laceration Condition: Good Instructions: Alcohol Withdrawal (ED), Skin Adhesive Care (ED), Recurrent Seizures in Adults (ED) Additional Instructions: Read and follow provided instructions. The staff at the [facility] will administer Librium to according to our dosing protocol. Return to the emergency department for seizure, vomiting or other serious concerns. Referrals: [facility] Detox 24 Hours [Outside] - As per Instructions
[2017-08-16] MEDS ORDERED: CHLORDIAZEPOXIDE 25MG PREPK#6 BTL TAKEHOME ONE (20:29)
[2017-08-16 21:01] VITALS: BP 123/86; PULSE 66; RESP 18; TEMP 98.8; O2SAT 98
== END 2017-08-16 21:01 | disposition home or self-care (01) ==
LOC: EDUNIT#
PROC: 0HQ1XZZ Repair Face Skin, External Approach (ICD-10-PCS; principal; 2017-08-16)
PROC: 3E0337Z Introduction of Electrolytic and Water Balance Substance into Peripheral Vein, Percutaneous Approach (ICD-10-PCS; principal; 2017-08-16)
DX: S01.81XA Laceration without foreign body of other part of head, initial encounter (principal); F10.239 Alcohol dependence with withdrawal, unspecified; G40.909 Epilepsy, unspecified, not intractable, without status epilepticus; E86.9 Volume depletion, unspecified; F17.200 Nicotine dependence, unspecified, uncomplicated; W18.09XA Striking against other object with subsequent fall, initial encounter
CPT/HCPCS: 96374; G0480; J2060; J2405

== ENCOUNTER 2017-08-24 16:27 | Emergency (ER) | payer MEDICAID ==
--- NOTE | 2017-08-24 16:21 | EDPHY ---
H & P Constitutional: Initial Vital Signs Temperature (C) 36.9 C 08/24/17 16:37 Heart Rate 104 H 08/24/17 16:37 Respiratory Rate 18 08/24/17 16:37 Blood Pressure 140/99 H 08/24/17 16:37 O2 Sat (%) 98 08/24/17 16:37 O2 Delivery Mode Room Air Allergies/Adverse Reactions: No Known Allergies Allergy (Verified 05/22/17 20:10) Home Medications: Medication Instructions Recorded NK [No Known Home Meds] 08/24/17 Medical Decision Making ED Course/Re-evaluation: CHIEF COMPLAINT: Seizure HISTORY OF PRESENT ILLNESS: The patient is a 27 y/o male with a history of alcohol abuse and withdrawal seizures complaining of a seizure. He has had several beers and a few shots each day for the past week, but did not drink yesterday. Today he had a seizure. He has associated nausea and tremors. He denies any other associated symptoms. He denies recent trauma. REVIEW OF SYSTEMS: A 10 point review of systems was performed and is negative with the exception of the elements mentioned in the history of present illness. PHYSICAL EXAM: HR, BP, O2 Sat, RR. Temp noted General Appearance: Alert, well hydrated, appropriate, and non-toxic appearing. Tremulous. Head: Atraumatic without scalp tenderness or obvious injury Eyes: Pupils equal, round, reactive to light and accommodation, EOMI, no trauma , no injection. Ears: Clear bilaterally, no perforation, normal landmarks Nose: Atraumatic, no rhinorrhea, clear. Throat: There is no erythema or exudates, no lesions, normal tonsils, mucus membranes moist. Neck: Supple, nontender, no lymphadenopathy. Respiratory: No retractions, no distress, no wheezes, and no accessory muscle use. Lungs are clear to auscultation bilaterally. Cardiovascular: Regular rate and rhythm, no murmurs, rubs, or gallops. Good capillary refill all extremities. Gastrointestinal: Abdomen is soft, nontender, non-distended, no masses, no rebound, no guarding, no peritoneal signs. Musculoskeletal: Normal active ROM of all extremities, atraumatic. Neurological: Alert, appropriate, and interactive. Skin: No rashes, good turgor, no nodules on palpation. Past medical history: Alcohol abuse, withdrawal seizures Past surgical history: Denies Family history: Non-contributory Social history: Mother at bedside, recent break-up, lives alone DIAGNOSTICS/PROCEDURES/CRITICAL CARE TIME: DIFFERENTIAL DIAGNOSIS: The differential diagnosis for the patient's seizure included but was not limited to electrolyte abnormality, alcohol withdrawal, medication noncompliance, head injury, WINDER HAND structural abnormality, and break through seizure. MEDICAL DECISION MAKING: The patient is a 27 y/o male with a history of alcohol abuse and withdrawal seizures complaining of a seizure this morning. He was drinking several beers and several shots of vodka each day this week. Yesterday he stopped drinking. This morning he had a seizure. He is tremulous and nauseated on exam. I suspect a withdrawal seizure. 173: Labs indicate an elevated anion gap. This is likely due to his seizure and not alcoholic ketoacidosis as his glucose level is normal. He will be discharged with instructions for detox services. Patient agrees to this plan. Return precautions given. - Data Points Laboratory Results: Laboratory Results 08/24/17 17:00 08/24/17 17:00 08/24/17 08/24/17 17:00 17:00 WBC 7.61 10^3/uL 10^3/uL (3.80-9.50) RBC 4.47 10^6/uL 10^6/uL (4.40-6.38) Hgb 15.1 g/dL g/dL (13.7-17.5) Hct 43.0 % % (40.0-51.0) MCV 96.2 fL fL (81.5-99.8) MCH 33.8 pg pg (27.9-34.1) MCHC 35.1 g/dL g/dL (32.4-36.7) RDW 14.2 % % (11.5-15.2) Plt Count 278 10^3/uL 10^3/uL (150-400) MPV 9.7 fL fL (8.7-11.7) Neut % (Auto) 54.4 % % (39.3-74.2) Lymph % (Auto) 28.3 % % (15.0-45.0) Guadalupe % (Auto) 15.5 % H % (4.5-13.0) Eos % (Auto) 0.3 % L % (0.6-7.6) Baso % (Auto) 1.2 % % (0.3-1.7) Nucleat RBC Rel Count 0.0 % % (0.0-0.2) Absolute Neuts (auto) 4.15 10^3/uL 10^3/uL (1.70-6.50) Absolute Lymphs (auto) 2.15 10^3/uL 10^3/uL (1.00-3.00) Absolute Monos (auto) 1.18 10^3/uL H 10^3/uL (0.30-0.80) Absolute Eos (auto) 0.02 10^3/uL L 10^3/uL (0.03-0.40) Absolute Basos (auto) 0.09 10^3/uL 10^3/uL (0.02-0.10) Absolute Nucleated RBC 0.00 10^3/uL 10^3/uL (0-0.01) Immature Gran % 0.3 % % (0.0-1.1) Immature Gran # 0.02 10^3/uL 10^3/uL (0.00-0.10) Sodium 142 mEq/L mEq/L (134-144) Potassium 3.0 mEq/L L mEq/L (3.5-5.2) Chloride 92 mEq/L L mEq/L (97-110) Carbon Dioxide 16 mEq/l L mEq/l (22-31) Anion Gap 34 mEq/L H mEq/L (8-16) BUN 4 mg/dL L mg/dL (7-23) Creatinine 0.9 mg/dL mg/dL (0.7-1.3) Estimated GFR > 60 Glucose 119 mg/dL H mg/dL (70-100) Calcium 9.9 mg/dL mg/dL (8.5-10.4) Ethyl Alcohol 37 mg/dL H mg/dL (0-10) Medications Given: Discontinued Medications Lorazepam (Ativan Injection) 1 mg IVP EDNOW ONE Stop: 08/24/17 16:45 Last Admin: 08/24/17 16:57 Dose: 1 mg Ondansetron HCl (Zofran) 4 mg IVP EDNOW ONE Stop: 08/24/17 16:31 Last Admin: 08/24/17 16:34 Dose: 4 mg Departure - Departure Disposition: Home, Routine, Self-Care Clinical Impression: Withdrawal seizures Qualifiers: Complication of substance-induced condition: uncomplicated Qualified Code(s): F19.230 - Other psychoactive substance dependence with withdrawal, uncomplicated Condition: Good Instructions: Alcohol Withdrawal (ED) Additional Instructions: 1. Please refrain from alcohol. If you would like detox services please contact us. 2. Return to the ED for continued seizures or other worsening of condition. Referrals: Patient,NotPresent [Primary Care Provider] - As per Instructions Aurora Moreno DO [Doctor of Osteopathy] - As per Instructions [facility] Detox 24 Hours [Outside] - As per Instructions Report Scribed for: Tu Kerr Report Scribed by: Karlie Schultz Date of Report: 08/24/17 Time of Report: 17:43
[2017-08-24] MEDS ORDERED: ONDANSETRON 4 MG/2 ML VIAL IVP ONE (16:30)
[2017-08-24 16:39] VITALS: RESP 18
[2017-08-24] MEDS ORDERED: LORazepam 2 MG/ML INJ IVP ONE (16:44)
[2017-08-24 17:14] LABS: % IMMATURE GRANULYOCYTES 0.3 % (0.0-1.1); ABSOLUTE IMMATURE GRANULOCYTES 0.02 10^3/uL (0.00-0.10); ADD DIFF? NO; ADD MORPH? NO; ADD SCAN? NO; ATYPICAL LYMPHOCYTE FLAG 10 (0-99); FRAGMENT RBC FLAG 0 (0-99); HEMOGLOBIN 15.1 g/dL (13.7-17.5); LEFT SHIFT FLG 0 (0-99); LIPEMIA HEMOLYSIS FLAG 90 (0-99); MEAN CELL HEMOGLOBIN 33.8 pg (27.9-34.1); MEAN CELL HEMOGLOBIN CONCENTR. 35.1 g/dL (32.4-36.7); MEAN CELL VOLUME 96.2 fL (81.5-99.8); MEAN PLATELET VOLUME 9.7 fL (8.7-11.7); PLATELET CLUMPS FLAG 0 (0-99); PLATELET COUNT 278 10^3/uL (150-400); RED BLOOD CELL COUNT 4.47 10^6/uL (4.40-6.38); RED CELL DISTRIBUTION WIDTH 14.2 % (11.5-15.2)
[2017-08-24 17:25] LABS: ANION GAP 34 mEq/L (8-16); CALCIUM 9.9 mg/dL (8.5-10.4); CARBON DIOXIDE 16 mEq/l (22-31); CHLORIDE 92 mEq/L (97-110); CREATININE 0.9 mg/dL (0.7-1.3); ETHANOL SERUM 37 mg/dL (0-10); GLOMERULAR FILTRATION RATE > 60; GLUCOSE 119 mg/dL (70-100); SODIUM 142 mEq/L (134-144)
[2017-08-24 17:53] VITALS: BP 132/82; PULSE 79; TEMP 98.6; O2SAT 96
== END 2017-08-24 18:01 | disposition home or self-care (01) ==
LOC: EDUNIT#
DX: F19.230 Other psychoactive substance dependence with withdrawal, uncomplicated (principal)
CPT/HCPCS: 96374; G0480; J2060; J2405

== ENCOUNTER 2018-09-24 08:05 | Emergency (ER) | payer MEDICAID ==
[2018-09-24] MEDS ORDERED: NS 1,000 ML IV ONE ×2 (08:31)
[2018-09-24] MEDS ORDERED: ONDANSETRON 4 MG/2 ML VIAL IVP ONE (08:31)
[2018-09-24] MEDS ORDERED: LORazepam 2 MG/ML INJ IVP ONE ×2 (08:32→09:54)
--- NOTE | 2018-09-24 08:34 | EDPHY ---
H & P Stated Complaint: Vomiting x 24 hours--"etoh related"-wants to go to [facility] Rehab Time Seen by Provider: 09/24/18 08:08 HPI/ROS: CHIEF COMPLAINT: Alcohol withdrawal HISTORY OF PRESENT ILLNESS: Patient is a 28-year-old alcoholic man who is familiar to me. He states that he has not drank in 24 hr and has an appointment to go to [facility]. They wanted him to come to the ER 1st for referral and medical clearance. He states that he has been vomiting several times this morning. No diarrhea. He is slightly tachycardic. Mild tremors. He does have a history of seizures in the setting of alcohol withdrawal. He denies recent fevers or infections. No, ingestants. Severity: Moderate Modifying factors: Worsening REVIEW OF SYSTEMS: Constitutional: denies: chills, fever, recent illness, recent injury EENTM: denies: blurred vision, double vision, nose congestion Respiratory: denies: cough, shortness of breath Cardiac: denies: chest pain, irregular heart rate, lightheadedness, palpitations Gastrointestinal/Abdominal: See HPI Genitourinary: denies: dysuria, frequency, hematuria, pain Musculoskeletal: denies: joint pain, muscle pain Skin: denies: lesions, rash, jaundice, bruising Neurological: denies: headache, numbness, paresthesia, tingling, dizziness, weakness Hematologic/Lymphatic: denies: blood clots, easy bleeding, easy bruising Immunologic/allergic: denies: HIV/AIDS, transplant 10 systems reviewed and negative except as noted EXAM: GENERAL: Moderate distress HEAD: Atraumatic, normocephalic. EYES: Pupils equal round and reactive to light, extraocular movements intact, sclera anicteric, conjunctiva are normal. ENT: TMs normal, nares patent, oropharynx clear without exudates. Moist mucous membranes. NECK: Normal range of motion, supple without lymphadenopathy or JVD. LUNGS: Breath sounds clear to auscultation bilaterally and equal. No wheezes rales or rhonchi. HEART: Regular rate and rhythm without murmurs, rubs or gallops. ABDOMEN: Soft, nontender, normoactive bowel sounds. No guarding, no rebound. No masses appreciated. BACK: No CVA tenderness, no spinal tenderness, step-offs or deformities EXTREMITIES: Minimal tremors, Normal range of motion, no pitting or edema. No clubbing or cyanosis. NEUROLOGICAL: Cranial nerves II through XII grossly intact. Normal speech, normal gait. 5/5 strength, normal movement in all extremities, normal sensation , normal reflexes PSYCH: Normal mood, normal affect. SKIN: Warm, dry, normal turgor, no visible rashes or lesions. Source: Patient Exam Limitations: No limitations - Medical/Surgical History Hx Asthma: No Hx Chronic Respiratory Disease: No Hx Diabetes: No Hx Cardiac Disease: No Hx Renal Disease: No Hx Cirrhosis: No Hx Alcoholism: Yes Hx HIV/AIDS: No Hx Splenectomy or Spleen Trauma: No Other PMH: etoh w/d seizures - Family History Significant Family History: No pertinent family hx - Social History Smoking Status: Current every day smoker Alcohol Use: Heavy Drug Use: None Constitutional: Initial Vital Signs Temperature (C) 37.0 C 09/24/18 08:09 Heart Rate 128 H 09/24/18 08:09 Respiratory Rate 20 09/24/18 08:09 Blood Pressure 119/74 09/24/18 08:09 O2 Sat (%) 98 09/24/18 08:09 O2 Delivery Mode Room Air Allergies/Adverse Reactions: No Known Allergies Allergy (Verified 05/22/17 20:10) Home Medications: Medication Instructions Recorded NK [No Known Home Meds] 08/24/17 Medical Decision Making ED Course/Re-evaluation: The patient is feeling much better. He is still slightly tachycardic. Tells me now that he had an injection of Vivitrol about a week ago. I will treat him with more Ativan. Case management is on the phone with Al Marmolejo. We have obtain further history. The patient began drinking at age 15. He then continued to drink and began binge drinking in college and after a couple years became a daily habit. He has had withdrawal seizures in the past attempting to detox. Recently he has sought outpatient care which has not been successful. He recently received an injection of Vivitrol but continues to drink. [facility] is requesting lab work. Lab work has returned. They are requesting an explanation for why he has an elevated white blood cell count. This is also why his likely hernia acidotic. This is likely because he is vomiting. He has been hydrated. He is feeling much better. He looks great clinically. He does not need to be in the ER longer. Will discharge him at this time. Differential Diagnosis: Partial list of the Differential diagnosis considered include but were not limited to; alcoholism, alcohol withdrawal, anxiety, medication reaction and although unlikely based on the history and physical exam, I also considered infection, head injury. - Data Points Laboratory Results: Laboratory Results 09/24/18 09:30 09/24/18 09:30 Medications Given: Discontinued Medications Chlordiazepoxide (Librium 25 Mg Prepack#6) 1 btl TAKEHOME EDNOW ONE Stop: 09/24/18 10:12 Last Admin: 09/24/18 12:00 Dose: Not Given Sodium Chloride (Ns) 1,000 mls @ 0 mls/hr IV EDNOW ONE; Wide Open PRN Reason: Protocol Stop: 09/24/18 08:32 Last Admin: 09/24/18 08:45 Dose: 1,000 mls Sodium Chloride (Ns) 1,000 mls @ 0 mls/hr IV EDNOW ONE; Wide Open PRN Reason: Protocol Stop: 09/24/18 08:32 Last Admin: 09/24/18 08:46 Dose: 1,000 mls Lorazepam (Ativan Injection) 2 mg IVP EDNOW ONE Stop: 09/24/18 08:33 Last Admin: 09/24/18 08:45 Dose: 2 mg Lorazepam (Ativan Injection) 2 mg IVP EDNOW ONE Stop: 09/24/18 09:55 Last Admin: 09/24/18 10:00 Dose: 2 mg Ondansetron HCl (Zofran) 4 mg IVP EDNOW ONE Stop: 09/24/18 08:32 Last Admin: 09/24/18 08:45 Dose: 4 mg Departure - Departure Disposition: Home, Routine, Self-Care Clinical Impression: Alcohol dependency Qualifiers: Substance use status: uncomplicated Qualified Code(s): F10.20 - Alcohol dependence, uncomplicated Alcohol withdrawal Qualifiers: Complication of substance-induced condition: uncomplicated Qualified Code(s): F10.230 - Alcohol dependence with withdrawal, uncomplicated Condition: Fair Instructions: Chlordiazepoxide (By mouth), Alcohol Withdrawal (ED) Additional Instructions: Go to [facility] as directed Referrals: NONE *PRIMARY CARE P,. [Unknown] - As per Instructions
[2018-09-24] MEDS ORDERED: CHLORDIAZEPOXIDE 25MG PREPK#6 BTL TAKEHOME ONE (10:11)
[2018-09-24 10:28] LABS: PLATELET COUNT 362 10^3/uL (150-400)
[2018-09-24 12:27] VITALS: BP 120/75
--- NOTE | 2018-09-24 17:01 | ASMTCMCOM ---
CM Note CM Note Notes: Patient presented to the ED this morning requesting medical clearance for detox at [facility]. Patient informed this CM that he has been to [facility] in the past and would like to return. Patient is sober with mild to moderate withdrawal symptoms; tachycardia, anxiety, when I met with him. Patient appeared motivated and states that he has been trying to detox/stay sober as an outpatient, but realizes he needs more help and IP admission. Patient received a Vivitrol injection at [facility] within the past 2 weeks. This CM coordinated with Gerardo at [facility] Intake and patient was accepted for admission today. Requested documentation and assessments faxed to and RN report called to per Ana Laura FOSS. Patient's SO/girlfriend responsible for transport to and both she and patient confirm knowledge of location and where to check in. In addition, I have instructed them to go directly from this ED to due to a "2 hour" window required by for admission. Date Signed: 09/24/2018 05:01 PM Electronically Signed By:Cecy Mistry RN
== END 2018-09-24 13:05 | disposition home or self-care (01) ==
DX: F10.230 Alcohol dependence with withdrawal, uncomplicated (principal); E86.9 Volume depletion, unspecified; F17.200 Nicotine dependence, unspecified, uncomplicated
CPT/HCPCS: 80305; 96374; G0480; J2060; J2405

== ENCOUNTER 2018-11-30 02:04 | Emergency (ER) | payer MEDICAID ==
[2018-11-30] MEDS ORDERED: NS 1,000 ML IV ONE ×3 (02:22→04:41)
[2018-11-30] MEDS ORDERED: LORazepam 2 MG/ML INJ IVP ONE (02:22)
[2018-11-30] MEDS ORDERED: ONDANSETRON 4 MG/2 ML VIAL IVP ONE (02:22)
--- NOTE | 2018-11-30 02:23 | EDPHY ---
H & P Stated Complaint: N/V/D,blood streaked,SOB heavy alcohol use last drink Saturday night Time Seen by Provider: 11/30/18 02:22 HPI/ROS: HPI CHIEF COMPLAINT: Nausea vomiting, can't keep anything down, after binge drinking alcohol. HISTORY OF PRESENT ILLNESS: This is a 28-year-old male, alcoholic, drinks alcohol frequently, binge drink alcohol on Saturday states he drank 750 mL of vodka. Unable to hold anything down tonight with ongoing nausea and vomiting feeling shaky. He is concerned that he drank too much alcohol on and Saturday. Possibly going through alcohol withdrawal. States been vomiting and unable to tolerate p.o.. Denies any chest pain shortness of breath, denies any significant abdominal pain. Past Medical History: Alcohol withdrawal, alcohol withdrawal seizures, alcoholism Past Surgical History: No recent surgery Social History: The frequent alcohol use and binge drinks alcohol. Denies other drugs or tobacco. Family History: Noncontributory ROS REVIEW OF SYSTEMS: 10 Systems were reviewed and negative with the exception of the elements mentioned in the history of present illness. Exam Constitutional nontoxic no acute distress triage nursing summary reviewed, vital signs reviewed, awake/alert. Tachycardic at triage Eyes normal conjunctivae and sclera, EOMI, PERRLA. HENT normal inspection, atraumatic, moist mucus membranes, no epistaxis, neck supple/ no meningismus, no raccoon eyes. Respiratory clear to auscultation bilaterally, normal breath sounds, no respiratory distress, no wheezing. Cardiovascular tachycardia, regular rhythm, no murmur, no edema, distal pulses normal. Gastrointestinal soft, non-tender, no rebound, no guarding, normal bowel sounds, no distension, no pulsatile mass. Genitourinary no CVA tenderness. Musculoskeletal no midline vertebral tenderness, full range of motion, no calf swelling, no tenderness of extremities, no meningismus, good pulses, neurovascularly intact. Skin pink, warm, & dry, no rash, skin atraumatic. Neurologic awake, alert and oriented x 3, AAOx3, moves all 4 extremities equally, motor intact, sensory intact, CN II-XII intact, normal cerebellar, normal vision, normal speech. Psychiatric normal mood/affect. Heme/Lymph/Immune no lymphadenopathy. Differential Diagnosis: Includes but is not limited to in a particular order acute alcohol withdrawal, alcohol-induced gastritis, pancreatitis, electrolyte disturbance, low Mag, dehydration Medical Decision Making: Plan for this patient IV establishment IV fluid bolus 2 L normal saline, IV Zofran for nausea, IV Ativan for draw, IV Pepcid for GI stomach upset, basic labs electrolytes, magnesium and re-evaluate. Re-evaluation: EKG interpretation by me on record in Impulsiv system. Impression time of EKG 2:20 a.m., sinus tach 129, no signs of acute ischemia. 0530: Patient much improved after 3 L of fluid, IV Zofran, IV Ativan. IV Pepcid. On re-examination at this time is abdomen is soft nontender. He is not vomiting. The patient p.o. Challenge well and feels much better and would like to go home. He drank fluid and ice. I discussed return precautions with me understands return emergency room if develops worsening abdominal pain, fever, vomiting. Rankin diet over the next 24 -48 hours. No alcohol. Source: Patient - Personal History Current Tetanus/Diphtheria Vaccine: Yes Current Tetanus Diphtheria and Acellular Pertussis (TDAP): Yes - Medical/Surgical History Hx Asthma: No Hx Chronic Respiratory Disease: No Hx Diabetes: No Hx Cardiac Disease: No Hx Renal Disease: No Hx Cirrhosis: No Hx Alcoholism: Yes Hx HIV/AIDS: No Hx Splenectomy or Spleen Trauma: No Other PMH: etoh w/d seizures - Social History Smoking Status: Current every day smoker Constitutional: Initial Vital Signs Temperature (C) 36.3 C 11/30/18 02:10 Heart Rate 154 H 11/30/18 02:10 Respiratory Rate 20 11/30/18 02:10 Blood Pressure 113/84 H 11/30/18 02:10 O2 Sat (%) 96 11/30/18 02:10 O2 Delivery Mode Room Air Allergies/Adverse Reactions: No Known Allergies Allergy (Verified 11/30/18 02:09) Home Medications: Medication Instructions Recorded Naltrexone [Naltrexone Base 11/30/18 Monohydrate] Medical Decision Making - Data Points Laboratory Results: Laboratory Results 11/30/18 02:35 11/30/18 02:35 11/30/18 11/30/18 02:35 02:35 WBC 15.11 10^3/uL H 10^3/uL (3.80-9.50) RBC 5.81 10^6/uL 10^6/uL (4.40-6.38) Hgb 18.3 g/dL H g/dL (13.7-17.5) Hct 52.5 % H % (40.0-51.0) MCV 90.4 fL fL (81.5-99.8) MCH 31.5 pg pg (27.9-34.1) MCHC 34.9 g/dL g/dL (32.4-36.7) RDW 13.9 % % (11.5-15.2) Plt Count 282 10^3/uL 10^3/uL (150-400) MPV 9.8 fL fL (8.7-11.7) Neut % (Auto) 87.2 % H % (39.3-74.2) Lymph % (Auto) 5.3 % L % (15.0-45.0) Haines % (Auto) 6.9 % % (4.5-13.0) Eos % (Auto) 0.0 % L % (0.6-7.6) Baso % (Auto) 0.3 % % (0.3-1.7) Nucleat RBC Rel Count 0.0 % % (0.0-0.2) Absolute Neuts (auto) 13.18 10^3/uL H 10^3/uL (1.70-6.50) Absolute Lymphs (auto) 0.80 10^3/uL L 10^3/uL (1.00-3.00) Absolute Monos (auto) 1.04 10^3/uL H 10^3/uL (0.30-0.80) Absolute Eos (auto) 0.00 10^3/uL L 10^3/uL (0.03-0.40) Absolute Basos (auto) 0.05 10^3/uL 10^3/uL (0.02-0.10) Absolute Nucleated RBC 0.00 10^3/uL 10^3/uL (0-0.01) Immature Gran % 0.3 % % (0.0-1.1) Immature Gran # 0.04 10^3/uL 10^3/uL (0.00-0.10) Sodium 142 mEq/L mEq/L (135-145) Potassium 3.8 mEq/L mEq/L (3.5-5.2) Chloride 94 mEq/L L mEq/L (97-110) Carbon Dioxide 18 mEq/l L mEq/l (22-31) Anion Gap 30 mEq/L H mEq/L (6-14) BUN 18 mg/dL mg/dL (7-23) Creatinine 1.4 mg/dL H mg/dL (0.7-1.3) Estimated GFR 60 Glucose 141 mg/dL H mg/dL (70-100) Calcium 10.5 mg/dL H mg/dL (8.5-10.4) Magnesium 1.8 mg/dL mg/dL (1.6-2.3) Total Bilirubin 1.0 mg/dL mg/dL (0.1-1.4) Conjugated Bilirubin 0.5 mg/dL mg/dL (0.0-0.5) Unconjugated Bilirubin 0.5 mg/dL mg/dL (0.0-1.1) AST 56 IU/L IU/L (17-59) ALT 55 IU/L IU/L (21-72) Alkaline Phosphatase 113 IU/L IU/L (38-126) Total Protein 9.2 g/dL H g/dL (6.3-8.2) Albumin 5.9 g/dL H g/dL (3.5-5.0) Lipase 79 IU/L IU/L (23-300) Ethyl Alcohol < 10 mg/dL mg/dL (0-10) Medications Given: Discontinued Medications Famotidine (Pepcid) 20 mg IVP EDNOW ONE Stop: 11/30/18 02:27 Last Admin: 11/30/18 02:38 Dose: 20 mg Sodium Chloride (Ns) 1,000 mls @ 0 mls/hr IV EDNOW ONE; Wide Open PRN Reason: Protocol Stop: 11/30/18 02:23 Last Admin: 11/30/18 02:34 Dose: 1,000 mls Sodium Chloride (Ns) 1,000 mls @ 0 mls/hr IV EDNOW ONE; Wide Open PRN Reason: Protocol Stop: 11/30/18 02:23 Last Admin: 11/30/18 02:34 Dose: 1,000 mls Sodium Chloride (Ns) 1,000 mls @ 0 mls/hr IV ONCE ONE PRN Reason: Wide Open Stop: 11/30/18 04:42 Last Admin: 11/30/18 04:46 Dose: 1,000 mls Lorazepam (Ativan Injection) 1 mg IVP EDNOW ONE Stop: 11/30/18 02:23 Last Admin: 11/30/18 02:33 Dose: 1 mg Ondansetron HCl (Zofran) 4 mg IVP EDNOW ONE Stop: 11/30/18 02:23 Last Admin: 11/30/18 02:32 Dose: 4 mg Departure - Departure Disposition: Home, Routine, Self-Care Clinical Impression: Vomiting Condition: Fair Instructions: Acute Nausea and Vomiting (ED) Additional Instructions: 1. Rankin diet over the next 24-48 hours no spicy fatty greasy foods. 2. Return emergency to the room if worsening abdominal pain, fever, vomiting. Referrals: NONE *PRIMARY CARE P,. [Primary Care Provider] - As per Instructions
[2018-11-30] MEDS ORDERED: FAMOTIDINE 20 MG/2 ML SDV IVP ONE (02:26)
[2018-11-30 02:46] LABS: PLATELET COUNT 282 10^3/uL (150-400)
[2018-11-30 05:41] VITALS: BP 114/69
[2018-11-30] MEDS ORDERED: ONDANSETRON 4MG PREPACK#2 BTL TAKEHOME ONE (05:52)
--- NOTE | 2018-12-02 08:16 | CPEKG ---
Test Reason : OPEN Blood Pressure : / mmHG Vent. Rate : 129 BPM Atrial Rate : 130 BPM P-R Int : 122 ms QRS Dur : 086 ms QT Int : 431 ms P-R-T Axes : 077 097 066 degrees QTc Int : 632 ms Sinus tachycardia Borderline right axis deviation Prolonged QT interval Confirmed by Adam Rodriguez ([id number]) on 12/02/2018 8:15:55 AM Referred By: Adam Rodriguez Confirmed By:Adam Rodriguez
== END 2018-11-30 05:59 | disposition home or self-care (01) ==
DX: R11.2 Nausea with vomiting, unspecified (principal); E86.9 Volume depletion, unspecified
CPT/HCPCS: 96374; G0480; J2060; J2405

== ENCOUNTER 2018-12-01 08:23 | Emergency (ER) | payer MEDICAID ==
--- NOTE | 2018-12-01 08:34 | EDPHY ---
H & P Stated Complaint: vomit, acid burning Time Seen by Provider: 12/01/18 08:33 - Medical/Surgical History Hx Asthma: No Hx Chronic Respiratory Disease: No Hx Diabetes: No Hx Cardiac Disease: No Hx Renal Disease: No Hx Cirrhosis: No Hx Alcoholism: Yes Hx HIV/AIDS: No Hx Splenectomy or Spleen Trauma: No Other PMH: etoh w/d seizures - Social History Smoking Status: Current every day smoker Constitutional: Initial Vital Signs Temperature (C) 36.5 C 12/01/18 08:28 Heart Rate 75 12/01/18 08:28 Respiratory Rate 16 12/01/18 08:28 Blood Pressure 140/85 H 12/01/18 08:28 O2 Sat (%) 99 12/01/18 08:28 O2 Delivery Mode Room Air Allergies/Adverse Reactions: No Known Allergies Allergy (Verified 12/01/18 08:28) Home Medications: Medication Instructions Recorded Naltrexone [Naltrexone Base 11/30/18 Monohydrate] Pantoprazole Sodium [Protonix 40mg 40 mg PO DAILY #30 tab 12/01/18 (*)] Sucralfate [Carafate 1gm/10ml Oral 1 gm PO QID #120 ml 12/01/18 Liquid (*)] Medical Decision Making ED Course/Re-evaluation: CHIEF COMPLAINT: Vomiting, burning sensation in chest HISTORY OF PRESENT ILLNESS: The patient is a 28 y/o male with a history of alcoholic gastritis and alcohol withdrawal seizures complaining of vomiting and a burning sensation in his chest onset 3 days ago. Prior to the onset of symptoms he drank a significant amount of alcohol. These symptoms are similar to prior episodes of alcoholic gastritis. No fever, headache, lightheadedness, heart palpitations, shortness of breath, cough, hematemesis, urinary or bowel complaints, numbness, paresthesias. REVIEW OF SYSTEMS: A comprehensive 10 system review of systems is otherwise negative aside from elements mentioned in the history of present illness and medical decision making. PHYSICAL EXAM: HR, BP, O2 Sat, RR. Temp noted General Appearance: Alert, well hydrated, appropriate, and non-toxic appearing. Head: Atraumatic without scalp tenderness or obvious injury Eyes: Pupils equal, round, reactive to light and accommodation, EOMI, no trauma , no injection. Ears: Clear bilaterally, no perforation, normal landmarks Nose: Atraumatic, no rhinorrhea, clear. Throat: There is no erythema or exudates, no lesions, normal tonsils, mucus membranes dry. Neck: Supple, 2+ carotid upstroke, nontender, no lymphadenopathy. Respiratory: No retractions, no distress, no wheezes, and no accessory muscle use. Lungs are clear to auscultation bilaterally. Cardiovascular: Regular rate and rhythm, no murmurs, rubs, or gallops. Bilateral carotid, radial, dorsalis pedis, and posterior tibial pulses intact. Good capillary refill all extremities. Gastrointestinal: Abdomen is soft, nontender, non-distended, no masses, no rebound, no guarding, no peritoneal signs. Musculoskeletal: Normal active ROM of all extremities, atraumatic. Neurological: Alert, appropriate, and interactive. The patient has normal DTRs and non-focal cranial nerves, motor, sensory, and cerebellar exam. Skin: No rashes, good turgor, no nodules on palpation. Past medical history: Alcohol withdrawal seizures and alcoholic gastritis Past surgical history: Denies Family history: Denies Social history: Lives in [place], friend at bedside, not employed DIAGNOSTICS/PROCEDURES/CRITICAL CARE TIME: Not indicated. DIFFERENTIAL DIAGNOSIS: The differential diagnosis for the patient's nausea and vomiting included but was not limited to gastroenteritis, gastritis, appendicitis, and medication side effect. MEDICAL DECISION MAKING: The patient is a 28 y/o male with a history of alcoholic gastritis and alcohol withdrawal seizures presenting with vomiting and a burning sensation in his chest onset 3 days ago after drinking a significant amount of alcohol. Labs ordered; GI cocktail administered. Patient's symptoms are consistent with alcoholic gastritis. 0901: Reassessed patient after he was given medications; he is still having mild discomfort. 1005: Reassessed patient and discussed laboratory studies. I have discussed following up with GI and taking Protonix, Zofran, and Carafate as prescribed. Patient is comfortable with this plan; return precautions provided. - Data Points Laboratory Results: Laboratory Results 12/01/18 08:50 12/01/18 08:50 12/01/18 12/01/18 08:50 08:50 WBC 13.62 10^3/uL H 10^3/uL (3.80-9.50) RBC 4.91 10^6/uL 10^6/uL (4.40-6.38) Hgb 16.0 g/dL g/dL (13.7-17.5) Hct 45.6 % % (40.0-51.0) MCV 92.9 fL fL (81.5-99.8) MCH 32.6 pg pg (27.9-34.1) MCHC 35.1 g/dL g/dL (32.4-36.7) RDW 13.5 % % (11.5-15.2) Plt Count 190 10^3/uL 10^3/uL (150-400) MPV 9.4 fL fL (8.7-11.7) Neut % (Auto) 85.1 % H % (39.3-74.2) Lymph % (Auto) 6.3 % L % (15.0-45.0) Martin % (Auto) 8.0 % % (4.5-13.0) Eos % (Auto) 0.1 % L % (0.6-7.6) Baso % (Auto) 0.1 % L % (0.3-1.7) Nucleat RBC Rel Count 0.0 % % (0.0-0.2) Absolute Neuts (auto) 11.58 10^3/uL H 10^3/uL (1.70-6.50) Absolute Lymphs (auto) 0.86 10^3/uL L 10^3/uL (1.00-3.00) Absolute Monos (auto) 1.09 10^3/uL H 10^3/uL (0.30-0.80) Absolute Eos (auto) 0.02 10^3/uL L 10^3/uL (0.03-0.40) Absolute Basos (auto) 0.02 10^3/uL 10^3/uL (0.02-0.10) Absolute Nucleated RBC 0.00 10^3/uL 10^3/uL (0-0.01) Immature Gran % 0.4 % % (0.0-1.1) Immature Gran # 0.05 10^3/uL 10^3/uL (0.00-0.10) Sodium 135 mEq/L mEq/L (135-145) Potassium 3.6 mEq/L mEq/L (3.5-5.2) Chloride 97 mEq/L mEq/L (97-110) Carbon Dioxide 28 mEq/l mEq/l (22-31) Anion Gap 10 mEq/L mEq/L (6-14) BUN 10 mg/dL mg/dL (7-23) Creatinine 0.9 mg/dL mg/dL (0.7-1.3) Estimated GFR > 60 Glucose 104 mg/dL H mg/dL (70-100) Calcium 9.4 mg/dL mg/dL (8.5-10.4) Total Bilirubin 1.0 mg/dL mg/dL (0.1-1.4) Conjugated Bilirubin 0.4 mg/dL mg/dL (0.0-0.5) Unconjugated Bilirubin 0.6 mg/dL mg/dL (0.0-1.1) AST 36 IU/L IU/L (17-59) ALT 42 IU/L IU/L (21-72) Alkaline Phosphatase 81 IU/L IU/L (38-126) Total Protein 7.1 g/dL g/dL (6.3-8.2) Albumin 4.3 g/dL g/dL (3.5-5.0) Lipase 68 IU/L IU/L (23-300) Medications Given: Pantoprazole Sodium (Protonix) 40 mg IVP Q6H JOSUE Stop: 05/30/19 14:39 Last Admin: 12/01/18 09:19 Dose: 40 mg Discontinued Medications Al Hydroxide/Mg Hydroxide (Maalox Susp) 30 ml PO ONCE ONE Stop: 12/01/18 08:41 Last Admin: 12/01/18 08:56 Dose: 30 ml Hyoscyamine Sulfate (Levsin, Hyomax-Sl) 0.25 mg PO ONCE ONE Stop: 12/01/18 08:41 Last Admin: 12/01/18 08:56 Dose: 0.25 mg Sodium Chloride (Ns) 1,000 mls @ 0 mls/hr IV EDNOW ONE; Wide Open PRN Reason: Protocol Stop: 12/01/18 08:41 Last Admin: 12/01/18 08:55 Dose: 1,000 mls Sodium Chloride (Ns) 1,000 mls @ 0 mls/hr IV EDNOW ONE; Wide Open PRN Reason: Protocol Stop: 12/01/18 08:41 Last Admin: 12/01/18 08:55 Dose: 1,000 mls Lidocaine (Lidocaine 2% Viscous) 15 ml PO ONCE ONE Stop: 12/01/18 08:41 Last Admin: 12/01/18 08:56 Dose: 15 ml Ondansetron HCl (Zofran) 4 mg IVP EDNOW ONE Stop: 12/01/18 08:41 Last Admin: 12/01/18 08:54 Dose: 4 mg Departure - Departure Disposition: Home, Routine, Self-Care Clinical Impression: Alcoholic gastritis Qualifiers: Chronicity: acute Gastritis bleeding: without bleeding Qualified Code(s): K29.20 - Alcoholic gastritis without bleeding Condition: Good Instructions: Gastritis (ED) Additional Instructions: 1. Take Protonix, Zofran, and Carafate as prescribed. 2. Follow-up with a binding cutter in the next week. 3. Follow-up with your primary doctor within 72 hours. 4. Please stop drinking alcohol as this causes your gastritis. 5. Return to the Emergency Department for fever, chest pain, shortness of breath , increasing pain or other worsening of condition. Referrals: [facility],. [Clinic] - As per Instructions Mayra Zayas MD [Medical Doctor] - As per Instructions Prescriptions: Pantoprazole Sodium [Protonix 40mg (*)] 40 mg PO DAILY #30 tab Sucralfate [Carafate 1gm/10ml Oral Liquid (*)] 1 gm PO QID #120 ml Report Scribed for: Tu Kerr Report Scribed by: Fifi Hernadez Date of Report: 12/01/18 Time of Report: 08:37
[2018-12-01] MEDS ORDERED: NS 1,000 ML IV ONE ×2 (08:40)
[2018-12-01] MEDS ORDERED: ONDANSETRON 4 MG/2 ML VIAL IVP ONE (08:40)
[2018-12-01] MEDS ORDERED: LIDOCAINE 2% VISCOUS 15 ML UDCUP PO ONE (08:40)
[2018-12-01] MEDS ORDERED: HYOSCYAMINE SULFATE 0.125 MG TAB PO ONE (08:40)
[2018-12-01] MEDS ORDERED: MAG HYDROX/AL HYDROX/SIMETH 30 ML UDCUP PO ONE (08:40)
[2018-12-01] MEDS ORDERED: PANTOPRAZOLE SODIUM 40 MG VIAL ONE (09:16)
[2018-12-01 09:24] LABS: PLATELET COUNT 190 10^3/uL (150-400)
[2018-12-01] MEDS ORDERED: SUCRALFATE 1 GM/10 ML UDCUP PO ONE (09:37)
[2018-12-01 10:31] VITALS: BP 129/73
[2018-12-01] MEDS ORDERED: PANTOPRAZOLE SODIUM 40 MG VIAL IVP SCH (14:40)
== END 2018-12-01 10:30 | disposition home or self-care (01) ==
DX: K29.20 Alcoholic gastritis without bleeding (principal); R07.89 Other chest pain; E86.9 Volume depletion, unspecified; F17.200 Nicotine dependence, unspecified, uncomplicated
CPT/HCPCS: 96374; J2405